=== PATIENT | male | born 1955 | race Caucasian/White ===

== ENCOUNTER → 2024-06-28 | Outpatient (CLI) | payer MEDICARE, OTHER, SELFPAY ==
[2024-06-28 18:16] LABS: Alanine Aminotransferase 33 U/L (10-49); Albumin/Globulin Ratio 1.9 (1.2-2.2); Alkaline Phosphatase 82 U/L (46-116); Anion Gap 7 (7-16); Aspartate Amino Transferase 25 U/L (0-34); BUN/Creatinine Ratio 15 Ratio (12-20); Bilirubin,Total 0.5 mg/dL (0.3-1.2); Blood Urea Nitrogen 29 mg/dL (9-23); Calcium 9.9 mg/dL (8.3-10.6); Calcium (Corrected) 9.9 mg/dL (8.5-10.1); Carbon Dioxide 25.6 mMol/L (20.0-31.0); Chloride 101 mMol/L (98-107); Creatinine (Component) 1.9 mg/dL (0.6-1.3); Globulin 2.6 gm/dL (2.3-3.5); Glucose 191 mg/dL (74-106); Osmolality,Calculated 279 (275-295); Potassium 4.9 mMol/L (3.4-5.1); Sodium 134 mMol/L (136-145); Total Protein 7.6 gm/dL (5.7-8.2); eGFR 38 See Note
== END | disposition home or self-care (01) ==
LOC: COPL 16:01
PROVIDERS: PCP Physician Assistant; Referring Provider Physician Assistant; Visit Provider Physician Assistant
DX: E78.5 Hyperlipidemia, unspecified (principal); D50.9 Iron deficiency anemia, unspecified; E11.65 Type 2 diabetes mellitus with hyperglycemia; E55.9 Vitamin D deficiency, unspecified
CPT/HCPCS: 36415; 80053

== ENCOUNTER → 2024-08-12 | Outpatient (CLI) | payer MEDICARE, OTHER, SELFPAY ==
[2024-08-12 14:14] LABS: Basophils % (Auto) 1 % (0-2.5); Eosinophils # (Auto) 0.1 Thou/mm3 (0.0-0.5); Eosinophils % (Auto) 2 % (0-10); Hematocrit 44.6 % (41.0-53.0); Hemoglobin 15.2 g/dL (13.5-16.0); Immature Granulocytes % (Auto) 0 % (0-0); Immature Granulocytes Auto 0.01 Thou/mm3 (0.00-0.00); Lymphocytes # (Auto) 2.7 Thou/mm3 (1.0-4.8); Lymphocytes % (Auto) 41 % (10-50); Mean Corpuscular HGB Conc 34.1 g/dl (31.0-37.0); Mean Corpuscular Hemoglobin 29.9 pg (25.0-35.0); Mean Corpuscular Volume 88 fL (80-100); Monocytes # (Auto) 0.4 Thou/mm3 (0.0-0.8); Monocytes % (Auto) 6 % (0-12); Neutrophils # (Auto) 3.4 Thou/mm3 (1.8-7.7); Neutrophils % (Auto) 50 % (37-80); Nucleated Red Blood Cell % 0 /100 WBC (0); Platelet Count 185 Thou/mm3 (140-440); RDW Standard Deviation 40.4 fL (35.1-43.9); Red Blood Count 5.09 Miln/mm3 (4.50-5.90); White Blood Count 6.7 Thou/mm3 (3.8-10.6)
[2024-08-12 14:23] LABS: Glucose Estimated Average 174 mg/dL (80-131); Hemoglobin A1C 7.7 % Hgb (4.8-6.0); Parathyroid Hormone Intact 69.2 pg/ml (18.5-88.0)
[2024-08-12 14:25] LABS: Anion Gap 11 (7-16); BUN/Creatinine Ratio 13 Ratio (12-20); Blood Urea Nitrogen 22 mg/dL (9-23); Carbon Dioxide 24.3 mMol/L (20.0-31.0); Chloride 101 mMol/L (98-107); Creatinine (Component) 1.7 mg/dL (0.6-1.3); Glucose 139 mg/dL (74-106); Osmolality,Calculated 277 (275-295); Phosphorous 3.2 mg/dL (2.4-5.1); Potassium 4.6 mMol/L (3.4-5.1); Sodium 136 mMol/L (136-145); eGFR 44 See Note
[2024-08-12 14:36] LABS: Vitamin D 25 Hydroxy Total 28.1 ng/mL (7.3-40.2)
== END | disposition home or self-care (01) ==
PROVIDERS: PCP Family Medicine; Referring Provider Internal Medicine; Visit Provider Internal Medicine
DX: E11.22 Type 2 diabetes mellitus with diabetic chronic kidney disease (principal); N18.30 Chronic kidney disease, stage 3 unspecified; E78.5 Hyperlipidemia, unspecified
CPT/HCPCS: 36415; 80069; 81001; 82043; 82306; 82570; 83036; 83970; 85025

== ENCOUNTER → 2024-08-17 | Outpatient (CLI) | payer MEDICARE, OTHER, SELFPAY ==
--- NOTE | 2024-08-17 15:00 | XR_ITS ---
Examination: Retroperitoneal ultrasound, complete Technique: Multiple high resolution grayscale images of the retroperitoneum obtained, including kidneys and bladder. Exam date and time:August 17, 2024 at 1523 hours INDICATIONS: Acute renal failure on laboratory examination August 12, 2024 FINDINGS: Right kidney 9.9 x 7.2 x 7.4 cm cortex 1.7 cm Left kidney 11.3 x 6.1 x 6.0 cm cortex 1.4 cm Mild right moderate left renal parenchymal scar formation Prostate volume 16 cc no prostate nodules Anterior to the prostate is solid mass 2.5 x 2.2 x 2.4 cm IMPRESSION: Mild right kidney Moderate left renal parenchymal scar formation Bilateral renal cortical thinning Solid mass anterior to the prostate 2.5 x 2.2 x 2.4 cm, recommend CT scan abdomen pelvis post intravenous contrast follow-up
[2024-08-17 15:50] LABS: Collection Type, Urine Clean Catch; Squamous Epithelial Cell,Urine 0 /hpf (0-5)
[2024-08-17 17:45] LABS: Bilirubin,Urine Negative (Negative); Blood,Urine Negative (Negative); Clarity,Urine Clear (Clear/Hazy); Color,Urine Lt-Yellow (Lt Yel-Yel); Glucose, Urine 3+ (Negative); Hyaline Casts,Urine < 1 /hpf (0-1); Ketones,Urine Negative (Negative); Leukocyte Esterase,Urine Negative (Negative); Nitrite,Urine Negative (Negative); PH,Urine 6.5 (5.0-7.0); Protein,Urine Trace (Neg - Trace); RBC,Urine 1 /hpf (0-3); Specific Gravity,Urine 1.015 (1.001-1.035); Urobilinogen,Urine Negative mg/dL (0.0-1.0); WBC,Urine < 1 /hpf (0-5)
[2024-08-17 18:12] LABS: Creatinine MALB Rnd Ur 73 mg/dL (30-125); Microalbumin Creat Ratio 119 mg/gCrea (<30); Microalbumin, Random Urine 87 mg/L (0-300)
== END | disposition home or self-care (01) ==
LOC: CDIM 14:49 → COPL 15:49
PROVIDERS: PCP Internal Medicine; Referring Provider Internal Medicine; Visit Provider Radiology Diagnostic Radiology
DX: N28.89 Other specified disorders of kidney and ureter (principal); N42.89 Other specified disorders of prostate; E11.22 Type 2 diabetes mellitus with diabetic chronic kidney disease; N18.30 Chronic kidney disease, stage 3 unspecified; E78.5 Hyperlipidemia, unspecified
CPT/HCPCS: 76770; 81001; 82043; 82570

== ENCOUNTER → 2024-08-23 | Outpatient (CLI) | payer MEDICARE, OTHER, SELFPAY ==
--- NOTE | 2024-08-23 12:00 | XR_ITS ---
Examination: CT abdomen with intravenous contrast CT pelvis with intravenous contrast 2-D coronal reconstructions 2-D sagittal reconstructions Date and time of exam:August 23, 2024 1239 hours Comparison February 13, 2021 INDICATIONS: Diagnosis specified disorders of the prostate, solid mass anterior to the prostate 2.5 cm Renal sonogram August 17, 2024. CTDI: vol (mGy) 23.9 DLP: (mGycm) 957 Technique: Multiple axial sections of the abdomen and pelvis have been obtained. 64 slice high-resolution scanner used. 3 mm axial sections have been obtained, post intravenous injection 60 cc [id number] 2-D sagittal, coronal reconstructions obtained. Low dose protocols were performed. One or more of the following dose reduction techniques were used; automated exposure control, adjustment of the mA and/or KV according to patient size, use of iterative reconstruction technique. Findings: No focal liver or splenic lesions Absent gallbladder No pancreatic or adrenal mass 2 mm upper pole left renal calculus No hydronephrosis or ureteral calculi Aorta normal size No pericecal inflammatory change No bowel obstruction Transverse prostate dimension 4.9 cm No mass anterior to the prostate is depicted Urinary bladder is contracted Prominent osteopenia Advanced disc narrowing L5-S1 IMPRESSION: 2 mm nonobstructing upper pole left renal calculus Prostatomegaly, transverse dimension 4.7 cm No mass anterior to the prostate is noted on this study Recommend follow-up transrectal prostate sonography
[2024-08-23 14:15] LABS: Glucose Estimated Average 180 mg/dL (80-131); Hemoglobin A1C 7.9 % Hgb (4.8-6.0)
[2024-08-23 14:17] LABS: Alanine Aminotransferase 36 U/L (10-49); Albumin, Serum 5.2 gm/dL (3.4-4.8); Albumin/Globulin Ratio 1.9 (1.2-2.2); Alkaline Phosphatase 81 U/L (46-116); Anion Gap 10 (7-16); Aspartate Amino Transferase 23 U/L (0-34); BUN/Creatinine Ratio 13 Ratio (12-20); Bilirubin,Total 0.4 mg/dL (0.3-1.2); Blood Urea Nitrogen 25 mg/dL (9-23); Calcium 10.1 mg/dL (8.3-10.6); Calcium (Corrected) 10.1 mg/dL (8.5-10.1); Carbon Dioxide 26.1 mMol/L (20.0-31.0); Chloride 101 mMol/L (98-107); Cholesterol 190 mg/dL (132-200); Globulin 2.8 gm/dL (2.3-3.5); Glucose 149 mg/dL (74-106); HDL Cholesterol 48 mg/dL (40-60); LDL Cholesterol,Calculated 99 mg/dL (0-130); Osmolality,Calculated 281 (275-295); Potassium 5.1 mMol/L (3.4-5.1); Sodium 137 mMol/L (136-145); Triglycerides 216 mg/dL (30-150); eGFR 36 See Note
== END | disposition home or self-care (01) ==
LOC: CCTX 11:49 → COPL 13:08
PROVIDERS: Internal Medicine; PCP Physician Assistant; Referring Provider Physician Assistant; Visit Provider Radiology Diagnostic Radiology
DX: N20.0 Calculus of kidney (principal); N40.0 Benign prostatic hyperplasia without lower urinary tract symptoms; E11.65 Type 2 diabetes mellitus with hyperglycemia; E78.5 Hyperlipidemia, unspecified
CPT/HCPCS: 36415; 74177; 80053; 80061; 83036; A4649; Q9967

== ENCOUNTER → 2024-09-15 | Outpatient (CLI) | payer MEDICARE, OTHER, SELFPAY ==
--- NOTE | 2024-09-15 09:15 | XR_ITS ---
Examination: Transrectal prostate sonography TECHNIQUE: Grayscale transrectal sonographic images prostate Exam date and time: June 15, 2025 0953 hours INDICATIONS: Prostatomegaly on CT pelvis August 23, 2024 FINDINGS: Prostate 3.8 x 3.3 x 5.1 cm volume 34 cc 18 x 18 mm nodule in the mid anterior aspect of the prostate IMPRESSION: Positive for prostate nodule as above
== END | disposition home or self-care (01) ==
LOC: CDIM 09:06
PROVIDERS: PCP Physician Assistant; Referring Provider Internal Medicine; Visit Provider Internal Medicine
DX: N40.0 Benign prostatic hyperplasia without lower urinary tract symptoms (principal)
CPT/HCPCS: 76872

== ENCOUNTER → 2024-09-30 | Outpatient (BNVA) | payer MEDICARE, OTHER, SELFPAY | END | disposition home or self-care (01) | PROVIDERS: PCP Internal Medicine; Referring Provider Internal Medicine; Visit Provider Urology | DX: N40.1 Benign prostatic hyperplasia with lower urinary tract symptoms (principal); N13.8 Other obstructive and reflux uropathy; N40.2 Nodular prostate without lower urinary tract symptoms; N20.0 Calculus of kidney; I12.9 Hypertensive chronic kidney disease with stage 1 through stage 4 chronic kidney disease, or unspecified chronic kidney disease; E11.22 Type 2 diabetes mellitus with diabetic chronic kidney disease; N18.32 Chronic kidney disease, stage 3b; M13.80 Other specified arthritis, unspecified site; E11.42 Type 2 diabetes mellitus with diabetic polyneuropathy; E78.5 Hyperlipidemia, unspecified; E66.9 Obesity, unspecified; Z68.27 Body mass index [BMI] 27.0-27.9, adult | CPT/HCPCS: 81003; 99212; G0463 ==

== ENCOUNTER → 2024-10-07 | Outpatient (CLI) | payer MEDICARE, OTHER, SELFPAY ==
[2024-10-07 10:39] LABS: Basophils % (Auto) 1 % (0-2.5); Eosinophils # (Auto) 0.2 Thou/mm3 (0.0-0.5); Eosinophils % (Auto) 3 % (0-10); Hematocrit 47.4 % (41.0-53.0); Immature Granulocytes % (Auto) 0 % (0-0); Immature Granulocytes Auto 0.01 Thou/mm3 (0.00-0.00); Lymphocytes # (Auto) 2.6 Thou/mm3 (1.0-4.8); Lymphocytes % (Auto) 40 % (10-50); Mean Corpuscular HGB Conc 33.8 g/dl (31.0-37.0); Mean Corpuscular Volume 89 fL (80-100); Monocytes # (Auto) 0.4 Thou/mm3 (0.0-0.8); Monocytes % (Auto) 6 % (0-12); Neutrophils # (Auto) 3.2 Thou/mm3 (1.8-7.7); Neutrophils % (Auto) 51 % (37-80); Nucleated Red Blood Cell % 0 /100 WBC (0); Platelet Count 180 Thou/mm3 (140-440); RDW Standard Deviation 43.7 fL (35.1-43.9); Red Blood Count 5.33 Miln/mm3 (4.50-5.90); White Blood Count 6.4 Thou/mm3 (3.8-10.6)
[2024-10-07 10:50] LABS: Albumin, Serum 4.8 gm/dL (3.4-4.8); Anion Gap 9 (7-16); BUN/Creatinine Ratio 13 Ratio (12-20); Blood Urea Nitrogen 24 mg/dL (9-23); Calcium 9.7 mg/dL (8.3-10.6); Calcium (Corrected) 9.7 mg/dL (8.5-10.1); Carbon Dioxide 25.8 mMol/L (20.0-31.0); Chloride 103 mMol/L (98-107); Creatinine (Component) 1.9 mg/dL (0.6-1.3); Glucose 180 mg/dL (74-106); Osmolality,Calculated 284 (275-295); Phosphorous 3.5 mg/dL (2.4-5.1); Potassium 5.4 mMol/L (3.4-5.1); Sodium 138 mMol/L (136-145); eGFR 38 See Note
[2024-10-07 16:19] LABS: Collection Type, Urine Clean Catch; Squamous Epithelial Cell,Urine 0 /hpf (0-5)
[2024-10-07 16:50] LABS: Bilirubin,Urine Negative (Negative); Blood,Urine Negative (Negative); Clarity,Urine Clear (Clear/Hazy); Color,Urine Lt-Yellow (Lt Yel-Yel); Glucose, Urine 2+ (Negative); Ketones,Urine Negative (Negative); Leukocyte Esterase,Urine Negative (Negative); Nitrite,Urine Negative (Negative); PH,Urine 7.5 (5.0-7.0); Protein,Urine 1+ (Neg - Trace); RBC,Urine 5 /hpf (0-3); Urobilinogen,Urine Negative mg/dL (0.0-1.0); WBC,Urine 1 /hpf (0-5)
== END | disposition home or self-care (01) ==
LOC: COPL 09:45
PROVIDERS: PCP Family Medicine; Referring Provider Family Medicine; Visit Provider Internal Medicine
DX: N17.9 Acute kidney failure, unspecified (principal); I10 Essential (primary) hypertension
CPT/HCPCS: 36415; 80069; 81001; 85025

== ENCOUNTER 2024-10-28 11:35 | Inpatient (IN) | payer MEDICARE, OTHER, SELFPAY ==
[2024-10-28] VITALS (11 sets, daily range): BP systolic 126–165; BP diastolic 87–116; PULSE 93–106; RESP 12–99; TEMP 36.4–36.9; O2SAT 97–100; BMI 28.2
--- NOTE | 2024-10-28 11:58 | EKG_ITS ---
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
--- NOTE | 2024-10-28 12:18 | XR_ITS ---
Examination: PA lateral chest 2 views TECHNIQUE: Upright PA lateral chest 2 views Exam date and time: October 28, 2024 1246 hours Comparison January 17, 2024 INDICATIONS: Acute chest pain today. FINDINGS: Pneumonia left base and lingular segment left upper lobe 15 mm nodule in the right upper lobe Mild prominence of ventricle IMPRESSION: Pneumonia left base and lingular segment left upper lobe 15 mm pulmonary nodule right upper lobe, not visualized on chest film July 15, 2022 Differential would include lung carcinoma, recommend CT chest without intravenous contrast follow-up
--- NOTE | 2024-10-28 12:18 | PD.EDRME ---
Rapid Medical Screening Exam RME Arrival date/time: 10/28/24 11:35 68-year-old male presents to the emergency department today with complaints of chest pain back pain and neck pain Chief Complaint: Chest Pain Vital signs: Vital Signs Temperature 97.6 F 10/28/24 12:05 Pulse Rate 106 H 10/28/24 12:05 Respiratory Rate 16 10/28/24 12:05 Blood Pressure 138/87 H 10/28/24 12:05 Pulse Oximetry (%) 97 10/28/24 12:05 Oxygen Delivery Method Room Air 10/28/24 12:05
[2024-10-28 13:00] LABS: Basophils % (Auto) 1 % (0-2.5); Eosinophils # (Auto) 0.1 Thou/mm3 (0.0-0.5); Eosinophils % (Auto) 2 % (0-10); Hematocrit 42.6 % (41.0-53.0); Hemoglobin 14.5 g/dL (13.5-16.0); Immature Granulocytes % (Auto) 0 % (0-0); Immature Granulocytes Auto 0.02 Thou/mm3 (0.00-0.00); Lymphocytes % (Auto) 26 % (10-50); Mean Corpuscular Hemoglobin 30.2 pg (25.0-35.0); Mean Corpuscular Volume 89 fL (80-100); Monocytes # (Auto) 0.6 Thou/mm3 (0.0-0.8); Monocytes % (Auto) 7 % (0-12); Neutrophils # (Auto) 4.8 Thou/mm3 (1.8-7.7); Neutrophils % (Auto) 64 % (37-80); Nucleated Red Blood Cell % 0 /100 WBC (0); Platelet Count 157 Thou/mm3 (140-440); RDW Standard Deviation 43.7 fL (35.1-43.9); White Blood Count 7.5 Thou/mm3 (3.8-10.6)
[2024-10-28 13:15] LABS: Partial Thromboplastin Time 27.7 Seconds (22.0-36.0); Prothrombin Time 11.3 Seconds (9.0-12.2)
[2024-10-28 13:18] LABS: B-Type Natriuretic Peptide 163 pg/mL (0-100)
[2024-10-28 13:23] LABS: Alanine Aminotransferase 28 U/L (10-49); Albumin, Serum 4.6 gm/dL (3.4-4.8); Albumin/Globulin Ratio 1.6 (1.2-2.2); Alkaline Phosphatase 69 U/L (46-116); Anion Gap 11 (7-16); Aspartate Amino Transferase 42 U/L (0-34); BUN/Creatinine Ratio 9 Ratio (12-20); Bilirubin,Total 0.4 mg/dL (0.3-1.2); Blood Urea Nitrogen 17 mg/dL (9-23); Calcium 9.7 mg/dL (8.3-10.6); Calcium (Corrected) 9.7 mg/dL (8.5-10.1); Carbon Dioxide 23.9 mMol/L (20.0-31.0); Chloride 99 mMol/L (98-107); Creatinine (Component) 1.9 mg/dL (0.6-1.3); Estimated Creatinine Clearance 47.6 mL/min (>60); Globulin 2.8 gm/dL (2.3-3.5); Glucose 275 mg/dL (74-106); Magnesium 1.5 mg/dL (1.6-2.6); Osmolality,Calculated 279 (275-295); Potassium 4.3 mMol/L (3.4-5.1); Sodium 134 mMol/L (136-145); Total Protein 7.4 gm/dL (5.7-8.2); eGFR 38 See Note
[2024-10-28 13:25] LABS: Troponin I 2.337 ng/mL (0.0-0.045)
--- NOTE | 2024-10-28 14:03 | EKG_ITS ---
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[id number] Requested By: Jacob Brownlee Order Number: [id number] Reading MD: Jacob Brownlee Measurements Intervals [place] Rate: 95 P: 55 MA: 220 QRS: -37 QRSD: 84 T: 97 QT: 338 QTc: 425 Interpretive Statements SINUS RHYTHM WITH FIRST DEGREE AV BLOCK LEFT AXIS DEVIATION [QRS AXIS < -30] LOW QRS VOLTAGE IN PRECORDIAL LEADS [QRS DEFLECTION < 1.0 mV IN CHEST LEADS] PATTERN CONSISTENT WITH PULMONARY DISEASE SEPTAL MYOCARDIAL INFARCTION , OF INDETERMINATE AGE [40+ ms Q WAVE IN V1/V2] MODERATE T-WAVE ABNORMALITY, CONSIDER LATERAL ISCHEMIA [-0.1+ mV T-WAVE IN I/aVL/V5/V6] Compared to ECG 10/28/2024 12:09:19 First degree AV block now present Low QRS voltage now present Myocardial infarct finding now present Sinus tachycardia no longer present T-wave abnormality still present Possible ischemia still present /store/S0/[id number]/ecg/[id number].pdf
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
[2024-10-28] MEDS: NITROGLYCERIN 0.4 MG SUBL BTL #25 SL ×3 (14:14→20:50)
[2024-10-28] MEDS: Aspirin 325 MG TABLET PO (14:28)
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
[2024-10-28 15:27] LABS: Troponin I 3.475 ng/mL (0.0-0.045)
[2024-10-28] MEDS: HEPARIN SOD INJ 5000 UNIT/ML VIAL 4000 UNIT IV (16:00)
[2024-10-28] MEDS: Heparin/D5w 25K 250 ML Ivpb 25,000 UNIT/250 ML BAG 10 UNIT IV (16:03)
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
[2024-10-28 17:31] LABS: Troponin I 6.079 ng/mL (0.0-0.045)
--- NOTE | 2024-10-28 18:01 | PC.NURSE ---
WATER PURIFIER OPERATOR DR. POPE AT BEDSIDE, NOTIFIED OF ELEVATING TROPONIN, READ BACK LAB SERIES. MD AT BEDSIDE EVALUATING PT.
--- NOTE | 2024-10-28 19:00 | PC.NURSE ---
ASSSUMED CARE OF PATIENT, INTRODUCED MYSELF, PT IN NO ACUTE DISTRESS, DIAGNOSED WITH NSTEMI AND GOING TO [facility] IN AM WITH DR POPE, PT AWARE TO BE NPO AFTER MIDNIGHT AND HAS NO QUESTIONS REGARDING PLAN OF CARE. PT C/O CHEST PAIN 02/17, MORPHINE WILL BE GIVEN, PT ALERT AND ORIENTED. PT ON HEPARIN GTT WITH REPEAT PTT AT 2200, WILLL CONTINUE WITH PATIENTS PLAN OF CARE
[2024-10-28] MEDS: INSULIN LISPRO (AdmeLOG) 1 UNIT/0.01 ML UNIT SC (19:46)
[2024-10-28] MEDS: MORPHINE SULF INJ 10 MG/ML VIAL 2 MG IVP ×2 (19:46→22:43)
[2024-10-28] MEDS: ATORVASTATIN CALCIUM 20 MG TABLET 80 MG PO (19:47)
[2024-10-28] MEDS: MAGNESIUM OXIDE 400 MG TABLET PO (19:47)
--- NOTE | 2024-10-28 21:53 | PC.NURSE ---
RESIDENT NOTIFIED OF PATIENTS CONTINUED CHEST PAIN 02/17 LEFT SUBSTERNAL WITH MINIMAL RELIEF AFTET 3 S.L. NITROS AND 2MG MORPHINE IV. RESIDENT STATED HE WOULD PUT IN NEW ORDERS
--- NOTE | 2024-10-28 21:55 | EKG_ITS ---
[facility] Test Date: 2024-10-28 Pat Name: CHON LIZARRAGA Department: Room: [address] Gender: Male Dynamics Ax Consultant: : [id number] Requested By: Shauna Sun Order Number: [id number] Reading MD: Shauna Sun Measurements Intervals [place] Rate: 103 P: 47 VA: 196 QRS: -24 QRSD: 92 T: 115 QT: 332 QTc: 435 Interpretive Statements SINUS TACHYCARDIA BORDERLINE LEFT AXIS DEVIATION [QRS AXIS < -20] ST DEVIATION AND MODERATE T-WAVE ABNORMALITY, CONSIDER LATERAL ISCHEMIA [-0.1+ mV T-WAVE IN I/aVL/V5/V6] Compared to ECG 07/15/2022 06:02:34 Possible ischemia now present T-wave abnormality still present /store/S0/[id number].pdf
[2024-10-28] MEDS: MORPHINE SULF INJ 10 MG/ML VIAL IVP (22:07)
--- NOTE | 2024-10-28 22:15 | PC.NURSE ---
RESIDENTS DR CORREIA AND DR GARCÍA AT BEDSIDE ASSESSING PATIENT, SEE ORDERS
[2024-10-28 23:10] LABS: Partial Thromboplastin Time 40.5 Seconds (22.0-36.0)
--- NOTE | 2024-10-28 23:36 | PC.NURSE ---
SPOKE TO DR GARCÍA REGARDING HEPARIN GTT PROTOCOL HE STATS CONTNUE TO GIVEN THE 30ML/KG BOLUS NOT TO EXCEED 2000UNITS AND INCREASE BY THE RECOMMENDED 2 UNITS. MD ALSO MADE AWARE OF PATIENT CURRENT 6/10 CHEST PAIN THAT HASNT RESOLVED, WAITING FOR ORDERS
[2024-10-28] MEDS: HEPARIN SOD INJ 5000 UNIT/ML VIAL 2000 UNIT IV (23:45)
[2024-10-28] MEDS: NITROGLYCERIN OINT 2% 1 INCH PACKET TOP (23:45)
[2024-10-29] VITALS (25 sets, daily range): BP systolic 94–140; BP diastolic 53–98; PULSE 73–101; RESP 12–20; TEMP 36.2–36.9; O2SAT 94–99
[2024-10-29] MEDS: MORPHINE SULF INJ 10 MG/ML VIAL 2 MG IVP (02:11)
[2024-10-29 05:47] LABS: Basophils % (Auto) 1 % (0-2.5); Eosinophils # (Auto) 0.1 Thou/mm3 (0.0-0.5); Eosinophils % (Auto) 2 % (0-10); Hematocrit 38.3 % (41.0-53.0); Hemoglobin 13.1 g/dL (13.5-16.0); Immature Granulocytes % (Auto) 0 % (0-0); Immature Granulocytes Auto 0.02 Thou/mm3 (0.00-0.00); Lymphocytes # (Auto) 1.9 Thou/mm3 (1.0-4.8); Lymphocytes % (Auto) 27 % (10-50); Mean Corpuscular HGB Conc 34.2 g/dl (31.0-37.0); Mean Corpuscular Hemoglobin 30.3 pg (25.0-35.0); Mean Corpuscular Volume 89 fL (80-100); Monocytes # (Auto) 0.6 Thou/mm3 (0.0-0.8); Monocytes % (Auto) 9 % (0-12); Neutrophils # (Auto) 4.2 Thou/mm3 (1.8-7.7); Neutrophils % (Auto) 61 % (37-80); Nucleated Red Blood Cell % 0 /100 WBC (0); Platelet Count 126 Thou/mm3 (140-440); RDW Standard Deviation 43.3 fL (35.1-43.9); Red Blood Count 4.33 Miln/mm3 (4.50-5.90); White Blood Count 6.9 Thou/mm3 (3.8-10.6)
[2024-10-29 06:05] LABS: Glucose Estimated Average 177 mg/dL (80-131); Hemoglobin A1C 7.8 % Hgb (4.8-6.0)
[2024-10-29 06:36] LABS: Alanine Aminotransferase 32 U/L (10-49); Albumin, Serum 4.2 gm/dL (3.4-4.8); Albumin/Globulin Ratio 1.7 (1.2-2.2); Alkaline Phosphatase 61 U/L (46-116); Anion Gap 7 (7-16); Aspartate Amino Transferase 100 U/L (0-34); BUN/Creatinine Ratio 10 Ratio (12-20); Bilirubin,Total 0.4 mg/dL (0.3-1.2); Blood Urea Nitrogen 16 mg/dL (9-23); Calcium 9.3 mg/dL (8.3-10.6); Calcium (Corrected) 9.3 mg/dL (8.5-10.1); Carbon Dioxide 27.8 mMol/L (20.0-31.0); Cardiac Risk Estimate 3.1 RATIO (4.0-6.7); Chloride 100 mMol/L (98-107); Cholesterol 119 mg/dL (132-200); Creatinine (Component) 1.6 mg/dL (0.6-1.3); Estimated Creatinine Clearance 56.5 mL/min (>60); Globulin 2.5 gm/dL (2.3-3.5); Glucose 207 mg/dL (74-106); HDL Cholesterol 38 mg/dL (40-60); LDL Cholesterol,Calculated 50 mg/dL (0-130); Magnesium 1.6 mg/dL (1.6-2.6); Osmolality,Calculated 277 (275-295); Phosphorous 3.1 mg/dL (2.4-5.1); Potassium 4.1 mMol/L (3.4-5.1); Sodium 135 mMol/L (136-145); Thyroid Stimulating Hormone 2.52 uIU/mL (0.55-4.78); Total Protein 6.7 gm/dL (5.7-8.2); Triglycerides 154 mg/dL (30-150); eGFR 47 See Note
[2024-10-29 06:39] LABS: Partial Thromboplastin Time 52.8 Seconds (22.0-36.0)
[2024-10-29 06:40] LABS: Troponin I 15.949 ng/mL (0.0-0.045)
--- NOTE | 2024-10-29 06:47 | PC.NURSE ---
REPORT GIVEN TO ROLL ON WORKER JOSUE BOLIVAR
[2024-10-29 07:20] LABS: INR 1.1 (0.9-1.3); Prothrombin Time 11.6 Seconds (9.0-12.2)
[2024-10-29] MEDS: SODIUM CHLORIDE 0.9% 500 ML 500 ML 100 ML IV (10:15)
[2024-10-29] MEDS: SENNA TABLET 1 TAB PO (11:41)
[2024-10-29] MEDS: DOCUSATE SOD 100 MG CAPSULE PO (11:41)
[2024-10-29] MEDS: ASPIRIN EC 81 MG TABEC PO (11:42)
[2024-10-29 11:49] LABS: Partial Thromboplastin Time 44.7 Seconds (22.0-36.0)
[2024-10-29] MEDS: HEPARIN SOD INJ 1000 UNIT/ML VIAL 10 ML 2000 UNIT IV (12:41)
[2024-10-29] MEDS: Heparin/D5w 25K 250 ML Ivpb 25,000 UNIT/250 ML BAG 11.975 UNIT IV (12:45)
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
--- NOTE | 2024-10-29 15:00 | PC.NURSE ---
1015 patient is awake, alert, breathing unlabored, s/p LHC by Dr. Early, TR band present to right wrist, no bleeding or hematoma noted, report received from Sabi SALAS, patient to recover and be admitted to telemetry department. Pt to start heparin bolus and insusion protocol once TR band removed. Aspirin to be given in laborer cheesemaking today. 1112 medical technical writer at bedside to draw blood for PTT 1142 colace, Senna and Aspirin have been given 1155 Tr band removed, no bleeding or hematoma noted, site covered with tegaderm and coban 1241 PTT 44.7, 2000 units of bolus given per protocol order, new IV has been started to left hand 1245 heparin drip started per protocol 12unit/kg/hr, stat ptt ordered for 1845 1245 patient awake, alert, breathing unlabored, report given to Abby SALAS after starting heparin infusion, waiting for inpatient tele bed assignment 1330 Report received from Abby SALAS 1402 patient ambulated to bathroom and voided 1429 hospitalist at bedside taking to patient and family about plan of care 1500 patient awake, alert, breathing unlabored, dressing to right wrist dry with no active bleeding or hematoma, report given to Alecia SALAS, patient transferred to tele room 275 with all belongings.
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
--- NOTE | 2024-10-29 15:21 | PC.CM ---
Addendum entered by Miki Whelan RN 10/29/24 16:02: 1535- Received call from Dr. Cast regarding status of patient transfer, informed that [facility] was in the process of reviewing patient at this time and had been provided with contact information for attending Dr. Hollingsworth and concrete finishing machine operator Dr. Early. [facility] did not have a bed at this time, he asked that we call back and ask let them know that transfer was urgent. TC RN called [facility] and made them aware of this request, spoke to LATRICE Jordan at [facility] who reported that their Cardiovascular care TRANSFER STATION ATTENDANT Amaury Cuellar had spoken directly to Dr. Early and had been informed that transfer was not emergent at this time and a transfer tomorrow would be acceptable. [facility] did request that we call them back if patient's condition changes or becomes unstable. Dr. Cast and attending Dr. Hollingsworth informed of this information. Original Note: 1435- Transfer order received from Dr. Aicha Early, patient needs transfer to [facility] for CABG. Packet created and imaging discs obtained. [facility] transfer center aware, spoke with Nikki at [facility] who will review packet and start the process. She stated they do not have bed capacity at this time, but will communicate with her team regarding our request.
--- NOTE | 2024-10-29 15:56 | ECHO_ITS ---
Transthoracic Echo Report Ht (in): 74 Wt (lb): 195 Exam Location: [facility] Status: Inpatient Delivery Man: DONNY Domínguez^^^^ Indications: Procedure Performed: BP: 126 / 83 HR: 92 Rhythm: Sinus Technical Quality: Fair MEASUREMENTS (Male / Female) Normal Values 2D ECHO LV Diastolic Diameter PLAX 3.8 cm 4.2 - 5.9 / 3.9 - 5.3 cm LV Systolic Diameter PLAX 3.3 cm IVS Diastolic Thickness 1.2 cm 0.6 - 1.0 / 0.6 - 0.9 cm LVPW Diastolic Thickness 1.0 cm 0.6 - 1.0 / 0.6 - 0.9 cm LV Relative Wall Thickness 0.6 LVOT Diameter 1.7 cm Aortic Root Diameter 3.2 cm LA Systolic Diameter LX 2.2 cm 3.0 - 4.0 / 2.7 - 3.8 cm LV Ejection Fraction MOD 4C 61.1 % LV Cardiac Index MOD 4C 2895.1 cm?/min?m? LV Ejection Fraction 4C AL 62.1 % LV Cardiac Index 4C AL 3043.2 cm?/min?m? LV Ejection Fraction MOD 2C 39.2 % LV Cardiac Index MOD 2C 922.3 cm?/min?m? LV Ejection Fraction 2C AL 42.5 % LV Cardiac Index 2C AL 1022.0 cm?/min?m? LA Volume Index 16.6 cm?/m? 16 - 28 cm?/m? Ascending Aorta Diameter 2.4 cm DOPPLER AV Peak Velocity 123.0 cm/s AV Peak Gradient 6.1 mmHg AV Mean Gradient 4.0 mmHg AV Velocity Time Integral 21.9 cm AI Peak Velocity 207.0 cm/s AI Peak Gradient 17.1 mmHg AI Pressure Half Time 365.0 ms LVOT Peak Velocity 62.8 cm/s LVOT Peak Gradient 1.6 mmHg LVOT Velocity Time Integral 12.1 cm LVOT Cardiac Index 1172.8 cm?/min?m? AV Area Cont Eq vti 1.3 cm? AV Area Cont Eq pk 1.2 cm? MV Area PHT 4.2 cm? MR Peak Velocity 358.0 cm/s MR Peak Gradient 51.3 mmHg Mitral E Point Velocity 65.2 cm/s Mitral A Point Velocity 64.2 cm/s Mitral E to A Ratio 1.0 LV E' Lateral Velocity 7.3 cm/s Mitral E to LV E' Lateral Ratio 8.9 LV E' Septal Velocity 5.6 cm/s Mitral E to LV E' Septal Ratio 11.7 PV Peak Velocity 129.0 cm/s PV Peak Gradient 6.7 mmHg RVOT Peak Velocity 50.2 cm/s FINDINGS Left Ventricle The left ventricular cavity size is normal. Regional wall motion abnormalities are present. Anteroseptal. Lateral. Apical. Hypokinetic. . The left ventricular ejection fraction is mildly decreased, estimated at 40-45%. Right Ventricle The right ventricle is normal in size and systolic function. The estimated right ventricular systolic pressure, 20 mmHg. Left Atrium The left atrium is normal by two-dimensional, color flow and Doppler imaging with no structural abnormalities, no thrombus formation present. Right Atrium The right atrium is normal by two-dimensional imaging, color flow and Doppler imaging with no structural abnormalities, no thrombus formation present. Atrial Septum The interatrial septum appears normal with no evidence of a shunt. Aorta The aorta is normal by two-dimensional, color flow and Doppler interrogation. Mitral Valve Mild mitral regurgitation. Mild mitral annular calcification. Aortic Valve Trace to mild aortic valve regurgitation. Tricuspid Valve There is mild tricuspid valve regurgitation. Pulmonic Valve Trivial pulmonic valve regurgitation. Vessels The pulmonary artery appears normal. The inferior vena cava pulmonary and hepatic veins appear normal. Pericardium The pericardium is normal by two-dimensional imaging. There is no significant pericardial effusion. CONCLUSIONS indication: near syncope ischemic cardiomyopathy anterior sepatal apical hypokinesis Moderate LV dysfuction lVEF 40-45%t. RV appears normal with RVSP 20 mmHg. Trace mitral and trace tricuspid regurgitation Hannah Roberts (Electronically Signed) Final Date: 29 October 2024 14:01
[2024-10-29] MEDS: INSULIN LISPRO (AdmeLOG) 1 UNIT/0.01 ML UNIT SC (20:13)
[2024-10-29] MEDS: ATORVASTATIN CALCIUM 20 MG TABLET 80 MG PO (20:14)
[2024-10-30] VITALS: BP 106/79; BP 117/84; BP 120/93; BP 123/95; PULSE 73; PULSE 86; PULSE 91; PULSE 93; RESP 17; RESP 18; RESP 99; TEMP 36.2; TEMP 36.3; TEMP 36.7; O2SAT 95; O2SAT 96; O2SAT 98
[2024-10-30 00:03] VITALS: BP 120/82; PULSE 91
[2024-10-30] MEDS: NITROGLYCERIN 0.4 MG SUBL BTL #25 SL (00:03)
--- NOTE | 2024-10-30 00:03 | EKG_ITS ---
[facility] Test Date: 2024-10-30 Pat Name: CHON LIZARRAGA [facility] Gender: Male Transmission Worker: GOSIA : [id number] Requested By: Joey Curran Order Number: [id number] Reading MD: Joey Curran Measurements Intervals [place] Rate: 93 P: 7 IA: 176 QRS: -23 QRSD: 87 T: 112 QT: 367 QTc: 458 Interpretive Statements SINUS RHYTHM WITH SINUS ARRHYTHMIA SEPTAL MYOCARDIAL INFARCTION , OF INDETERMINATE AGE MODERATE T-WAVE ABNORMALITY, CONSIDER ANTEROLATERAL ISCHEMIA Compared to ECG 10/28/2024 19:18:22 First degree AV block no longer present Left-axis deviation no longer present Myocardial infarct finding still present T-wave abnormality still present Possible ischemia still present /store/S0/[id number]/ecg/[id number].pdf
--- NOTE | 2024-10-30 00:12 | PC.NURSE ---
Attempted to call [facility] to inform of status change for patient due to new onset chest pain. At this time, no answer. will attempt again
--- NOTE | 2024-10-30 00:23 | PC.NURSE ---
[facility] transfer called and notified of new onset chest pain. per [facility] transfer center, pt has been accepted and there is a room but has not been released yet due to [facility] not being on until tomorrow , they also would like to speak to MD Early first as well about patient prior to release bed. Hubert mendez and MD Curran made aware. MD Curran to contact MD Early to notify of events
--- NOTE | 2024-10-30 00:50 | EVENTNT_ITS ---
Documentation for date of: 10/30/24 Event Note Event Note: [employer] was called around 0005 this morning for acute chest pain, burning in nature. The patient's vitals were stable. He was given sublingual nitroglycerin 0.4 Mg x 1, after which patient reported that his pain started improving. EKG was done, that revealed no significant ST wave changes. Troponin, CMP, electrolytes, were ordered, and photography spotter Dr. Early was made aware of the situation. [facility] was contacted, and given the recent information. We will follow-up on labs. The patient's management plan was discussed with my attending physician MD Joey Murphy MD, PGY2
[2024-10-30 01:16] LABS: Alanine Aminotransferase 24 U/L (10-49); Albumin, Serum 4.9 gm/dL (3.4-4.8); Albumin/Globulin Ratio 1.6 (1.2-2.2); Alkaline Phosphatase 75 U/L (46-116); Anion Gap 10 (7-16); Aspartate Amino Transferase 86 U/L (0-34); BUN/Creatinine Ratio 11 Ratio (12-20); Bilirubin,Total 0.7 mg/dL (0.3-1.2); Blood Urea Nitrogen 18 mg/dL (9-23); Calcium 9.6 mg/dL (8.3-10.6); Calcium (Corrected) 9.6 mg/dL (8.5-10.1); Carbon Dioxide 27.5 mMol/L (20.0-31.0); Chloride 99 mMol/L (98-107); Creatinine (Component) 1.7 mg/dL (0.6-1.3); Estimated Creatinine Clearance 53.1 mL/min (>60); Globulin 3.1 gm/dL (2.3-3.5); Glucose 162 mg/dL (74-106); Magnesium 1.7 mg/dL (1.6-2.6); Osmolality,Calculated 277 (275-295); Phosphorous 2.8 mg/dL (2.4-5.1); Potassium 4.1 mMol/L (3.4-5.1); Sodium 136 mMol/L (136-145); eGFR 44 See Note
[2024-10-30] MEDS: MORPHINE SULF INJ 10 MG/ML VIAL 2 MG IVP ×2 (02:17→09:20)
[2024-10-30 03:52] LABS: Basophils % (Auto) 0 % (0-2.5); Eosinophils # (Auto) 0.1 Thou/mm3 (0.0-0.5); Eosinophils % (Auto) 2 % (0-10); Hematocrit 39.9 % (41.0-53.0); Hemoglobin 13.5 g/dL (13.5-16.0); Immature Granulocytes % (Auto) 0 % (0-0); Immature Granulocytes Auto 0.01 Thou/mm3 (0.00-0.00); Lymphocytes # (Auto) 1.2 Thou/mm3 (1.0-4.8); Lymphocytes % (Auto) 25 % (10-50); Mean Corpuscular HGB Conc 33.8 g/dl (31.0-37.0); Mean Corpuscular Hemoglobin 29.9 pg (25.0-35.0); Mean Corpuscular Volume 88 fL (80-100); Monocytes # (Auto) 0.4 Thou/mm3 (0.0-0.8); Monocytes % (Auto) 8 % (0-12); Neutrophils # (Auto) 3.2 Thou/mm3 (1.8-7.7); Neutrophils % (Auto) 65 % (37-80); Nucleated Red Blood Cell % 0 /100 WBC (0); Platelet Count 124 Thou/mm3 (140-440); RDW Standard Deviation 43.6 fL (35.1-43.9); Red Blood Count 4.52 Miln/mm3 (4.50-5.90); White Blood Count 4.9 Thou/mm3 (3.8-10.6)
[2024-10-30 04:00] VITALS: BP 132/86; PULSE 86; RESP 17; TEMP 36.7; O2SAT 98
[2024-10-30 04:18] LABS: Alanine Aminotransferase 33 U/L (10-49); Albumin, Serum 4.6 gm/dL (3.4-4.8); Albumin/Globulin Ratio 1.6 (1.2-2.2); Alkaline Phosphatase 66 U/L (46-116); Anion Gap 8 (7-16); Aspartate Amino Transferase 83 U/L (0-34); BUN/Creatinine Ratio 10 Ratio (12-20); Bilirubin,Total 0.6 mg/dL (0.3-1.2); Blood Urea Nitrogen 16 mg/dL (9-23); Calcium 9.4 mg/dL (8.3-10.6); Calcium (Corrected) 9.4 mg/dL (8.5-10.1); Carbon Dioxide 27.3 mMol/L (20.0-31.0); Chloride 100 mMol/L (98-107); Creatinine (Component) 1.6 mg/dL (0.6-1.3); Estimated Creatinine Clearance 56.4 mL/min (>60); Globulin 2.8 gm/dL (2.3-3.5); Glucose 164 mg/dL (74-106); Magnesium 1.7 mg/dL (1.6-2.6); Osmolality,Calculated 275 (275-295); Potassium 4.9 mMol/L (3.4-5.1); Sodium 135 mMol/L (136-145); Total Protein 7.4 gm/dL (5.7-8.2); eGFR 47 See Note
[2024-10-30 04:22] LABS: INR 1.1 (0.9-1.3); Partial Thromboplastin Time 52.6 Seconds (22.0-36.0); Prothrombin Time 11.7 Seconds (9.0-12.2)
[2024-10-30 06:00] VITALS: BMI 28.0
[2024-10-30 08:00] VITALS: BP 133/85; PULSE 79; RESP 14; TEMP 36.5; O2SAT 100
[2024-10-30] MEDS: ASPIRIN EC 81 MG TABEC PO (09:22)
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
== END 2024-10-30 09:30 | disposition short-term general hospital (02) | DRG 281 ==
LOC: SERX 14:48 → SERHOLD 16:18 → S2NX 10-29 15:07
PROVIDERS: Internal Medicine Cardiovascular Disease; Nurse Practitioner Primary Care; Student in an Organized Health Care Education/Training Program; Admitting Provider Student in an Organized Health Care Education/Training Program; Emergency Provider Emergency Medicine; PCP Physician Assistant; Visit Provider Student in an Organized Health Care Education/Training Program
DX: I21.4 Non-ST elevation (NSTEMI) myocardial infarction (principal); I13.0 Hypertensive heart and chronic kidney disease with heart failure and stage 1 through stage 4 chronic kidney disease, or unspecified chronic kidney disease; I50.20 Unspecified systolic (congestive) heart failure; E11.22 Type 2 diabetes mellitus with diabetic chronic kidney disease; E78.5 Hyperlipidemia, unspecified; N18.9 Chronic kidney disease, unspecified; G89.29 Other chronic pain; M54.2 Cervicalgia; M54.9 Dorsalgia, unspecified; R25.1 Tremor, unspecified; F41.9 Anxiety disorder, unspecified; I25.10 Atherosclerotic heart disease of native coronary artery without angina pectoris; N40.0 Benign prostatic hyperplasia without lower urinary tract symptoms; R91.1 Solitary pulmonary nodule; I25.5 Ischemic cardiomyopathy; Z79.4 Long term (current) use of insulin; Z79.82 Long term (current) use of aspirin; Z79.84 Long term (current) use of oral hypoglycemic drugs; Z79.899 Other long term (current) drug therapy; Z86.74 Personal history of sudden cardiac arrest
CPT/HCPCS: 36415; 71046; 80053; 80061; 83036; 83735; 83880; 84100; 84443; 84484; 85025; 85610; 85730; 87811; 93005; 93306; 96372; 96374; 96376; 99291; J0171; J0461; J1643; J1644; J1815; J2250; J2270; J2310; J2371; J3490; J7040; A9270; J2305

== ENCOUNTER 2025-02-02 13:32 | Emergency (ER) | payer MEDICARE, OTHER, SELFPAY ==
[2025-02-02 13:37] VITALS: PULSE 95; RESP 20; O2SAT 100; BMI 25.0
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
[2025-02-02 14:17] VITALS: BP 141/77; PULSE 90; RESP 14; TEMP 36.8; O2SAT 100
--- NOTE | 2025-02-02 14:23 | EKG_ITS ---
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
--- NOTE | 2025-02-02 15:10 | XR_ITS ---
Examination: CTA chest with intravenous contrast 2-D reconstructions 3-D reconstructions, vascular Date and time of exam: February 02, 2025 1649 hours INDICATIONS: History heart surgery, shortness of breath right chest pain today CTDI: vol (mGy) 16.6 DLP: (mGycm) 359 Technique: Multiple axial sections of the thorax have been obtained. 3 mm slice thickness, from below the hemidiaphragms to above the apices of the lungs. Mediastinal and lung density settings have been obtained. 2-D sagittal and coronal reconstructions. 3-D angiographic renderings, 3-D volume renderings, 3D post processing, vascular maximum intensity projections obtained. Contrast administered is 60 cc Isovue 300. Low dose protocols were performed. One or more of the following dose reduction techniques were used; automated exposure control, adjustment of the mA and/or KV according to patient size, use of iterative reconstruction technique. Findings: CABG No thoracic aortic aneurysmal dilatation or dissection Pulmonary artery segments are not enlarged No pulmonary artery filling defects Again noted 15 mm pulmonary nodule right upper lobe, stable compared with October 28, 2024 Significant pneumonia right base with small right pleural effusion Atelectasis left lower lobe Mild to moderate vascular congestion A heavy calcification left main and left anterior descending left circumflex and right coronary arteries The liver is lobular in contour with possible embolization material in the mid right liver Pancreas is not enlarged Kidneys partially visualized and hydronephrosis Gastrostomy tube Impression : Negative for pulmonary artery emboli Mild to moderate vascular congestion Prominent pneumonia right base with a small right pleural effusion Cirrhosis
[2025-02-02 15:28] VITALS: PULSE 88; RESP 20; O2SAT 100
[2025-02-02 15:28] LABS: Lactate (Lactic Acid) 1.1 mMol/L (0.4-2.0)
[2025-02-02 15:32] LABS: Basophils % (Auto) 1 % (0-2.5); Eosinophils # (Auto) 0.1 Thou/mm3 (0.0-0.5); Eosinophils % (Auto) 2 % (0-10); Hematocrit 26.1 % (41.0-53.0); Immature Granulocytes % (Auto) 0 % (0-0); Immature Granulocytes Auto 0.02 Thou/mm3 (0.00-0.00); Lymphocytes # (Auto) 1.6 Thou/mm3 (1.0-4.8); Lymphocytes % (Auto) 25 % (10-50); Mean Corpuscular HGB Conc 30.3 g/dl (31.0-37.0); Mean Corpuscular Hemoglobin 28.2 pg (25.0-35.0); Mean Corpuscular Volume 93 fL (80-100); Monocytes # (Auto) 0.4 Thou/mm3 (0.0-0.8); Monocytes % (Auto) 7 % (0-12); Neutrophils # (Auto) 4.3 Thou/mm3 (1.8-7.7); Neutrophils % (Auto) 66 % (37-80); Nucleated Red Blood Cell % 0 /100 WBC (0); Platelet Count 216 Thou/mm3 (140-440); RDW Standard Deviation 46.4 fL (35.1-43.9); White Blood Count 6.6 Thou/mm3 (3.8-10.6)
[2025-02-02 15:35] LABS: Hemoglobin 7.9 g/dL (13.5-16.0)
[2025-02-02 15:40] VITALS: PULSE 84; RESP 20; O2SAT 100
[2025-02-02 15:42] LABS: Base Excess 4 (-3-3); HCO3 28 mEq/L (20-26); Inspired O2, VO2 Liters 6 L/min; O2 Saturation 101 % (91-98); PCO2 40 mmHg (32.0-48.0); PO2 165 mmHg (83-108); pH, Arterial 7.46 (7.35-7.45)
[2025-02-02 15:43] LABS: Allen Test Performed/OK; Puncture Site Left Radial
[2025-02-02 15:47] LABS: B-Type Natriuretic Peptide 72 pg/mL (0-100)
[2025-02-02 15:49] LABS: INR 1.1 (0.9-1.3); Partial Thromboplastin Time 25.5 Seconds (22.0-36.0); Prothrombin Time 11.5 Seconds (9.0-12.2)
[2025-02-02] MEDS: cefTRIAXone/D5w 1gm IV premix 1 GM/50 ML BAG IV (16:02)
[2025-02-02 16:05] LABS: Alanine Aminotransferase 35 U/L (10-49); Albumin, Serum 4.1 gm/dL (3.4-4.8); Albumin/Globulin Ratio 1.3 (1.2-2.2); Alkaline Phosphatase 106 U/L (46-116); Anion Gap 5 (7-16); Aspartate Amino Transferase 32 U/L (0-34); BUN/Creatinine Ratio 8 Ratio (12-20); Bilirubin,Total < 0.2 mg/dL (0.3-1.2); Blood Urea Nitrogen 12 mg/dL (9-23); Calcium 9.2 mg/dL (8.3-10.6); Calcium (Corrected) 9.2 mg/dL (8.5-10.1); Carbon Dioxide 30.5 mMol/L (20.0-31.0); Chloride 102 mMol/L (98-107); Creatinine (Component) 1.6 mg/dL (0.6-1.3); Estimated Creatinine Clearance 51.4 mL/min (>60); Globulin 3.2 gm/dL (2.3-3.5); Glucose 143 mg/dL (74-106); LDH (Lactate Dehydrogenase) 140 U/L (120-246); Lipase 39 U/L (12-53); Magnesium 1.8 mg/dL (1.6-2.6); Osmolality,Calculated 275 (275-295); Phosphorous 2.7 mg/dL (2.4-5.1); Potassium 5.3 mMol/L (3.4-5.1); Procalcitonin 0.11 ng/ml (0.0-0.49); Sodium 137 mMol/L (136-145); Total Protein 7.3 gm/dL (5.7-8.2); Troponin I < 0.020 ng/mL (0.0-0.045); eGFR 47 See Note
[2025-02-02] MEDS: RINGERS LACTATED 1000 ML 1,000 ML 500 ML IV (16:32)
[2025-02-02 16:36] VITALS: BP 138/82; PULSE 83; RESP 19; O2SAT 100
[2025-02-02 18:48] VITALS: BP 160/84; PULSE 82; RESP 18; TEMP 36.6; O2SAT 100
[2025-02-02] MEDS: AZITHROMYCIN 250 MG TABLET 500 MG PO (19:38)
== END 2025-02-02 19:48 | disposition home or self-care (01) ==
PROVIDERS: Emergency Provider Emergency Medicine; PCP Physician Assistant
DX: J18.9 Pneumonia, unspecified organism (principal); N17.9 Acute kidney failure, unspecified; D64.9 Anemia, unspecified; E86.0 Dehydration; J90 Pleural effusion, not elsewhere classified; K74.60 Unspecified cirrhosis of liver; E78.00 Pure hypercholesterolemia, unspecified; I10 Essential (primary) hypertension; Z86.74 Personal history of sudden cardiac arrest
CPT/HCPCS: 36415; 36600; 71275; 80053; 81001; 82803; 83605; 83615; 83690; 83735; 83880; 84100; 84145; 84484; 85025; 85610; 85730; 87040; 87086; 93005; 96361; 96365; 99285; A4649; J0696; J7120; Q9967; A9270

== ENCOUNTER 2025-02-14 09:08 | Outpatient (RCR) | payer MEDICARE, OTHER, SELFPAY ==
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
== END 2025-03-10 23:59 | disposition home or self-care (01) ==
LOC: SCTC 09:08
PROVIDERS: PCP Physician Assistant; Referring Provider Physician Assistant; Visit Provider Internal Medicine Hematology & Oncology
DX: D72.89 Other specified disorders of white blood cells (principal); J90 Pleural effusion, not elsewhere classified; N42.89 Other specified disorders of prostate
CPT/HCPCS: 99213; G0463

== ENCOUNTER → 2025-02-25 | Outpatient (CLI) | payer MEDICARE, OTHER, SELFPAY ==
[2025-02-25 13:25] LABS: Basophils # (Auto) 0.0 Thou/mm3 (0.0-0.2); Basophils % (Auto) 1 % (0-2.5); Eosinophils # (Auto) 0.4 Thou/mm3 (0.0-0.5); Eosinophils % (Auto) 5 % (0-10); Hematocrit 35.9 % (41.0-53.0); Hemoglobin 11.5 g/dL (13.5-16.0); Immature Granulocytes Auto 0.01 Thou/mm3 (0.00-0.00); Lymphocytes # (Auto) 2.3 Thou/mm3 (1.0-4.8); Lymphocytes % (Auto) 30 % (10-50); Mean Corpuscular HGB Conc 32.0 g/dl (31.0-37.0); Mean Corpuscular Hemoglobin 27.7 pg (25.0-35.0); Mean Corpuscular Volume 87 fL (80-100); Monocytes # (Auto) 0.4 Thou/mm3 (0.0-0.8); Monocytes % (Auto) 5 % (0-12); Neutrophils # (Auto) 4.5 Thou/mm3 (1.8-7.7); Neutrophils % (Auto) 59 % (37-80); Nucleated Red Blood Cell # 0.00 Thou/mm3 (0.00-0.00); Nucleated Red Blood Cell % 0 /100 WBC (0); Platelet Count 244 Thou/mm3 (140-440); RDW Standard Deviation 43.1 fL (35.1-43.9); Red Blood Count 4.15 Miln/mm3 (4.50-5.90); White Blood Count 7.7 Thou/mm3 (3.8-10.6)
[2025-02-25 13:35] LABS: Alanine Aminotransferase 28 U/L (10-49); Albumin, Serum 4.5 gm/dL (3.4-4.8); Albumin/Globulin Ratio 1.2 (1.2-2.2); Alkaline Phosphatase 100 U/L (46-116); Anion Gap 10 (7-16); Aspartate Amino Transferase 31 U/L (0-34); BUN/Creatinine Ratio 10 Ratio (12-20); Bilirubin,Total < 0.2 mg/dL (0.3-1.2); Blood Urea Nitrogen 14 mg/dL (9-23); Calcium 9.5 mg/dL (8.3-10.6); Calcium (Corrected) 9.5 mg/dL (8.5-10.1); Carbon Dioxide 27.9 mMol/L (20.0-31.0); Chloride 99 mMol/L (98-107); Creatinine (Component) 1.4 mg/dL (0.6-1.3); Globulin 3.8 gm/dL (2.3-3.5); Glucose 208 mg/dL (74-106); LDH (Lactate Dehydrogenase) 145 U/L (120-246); Osmolality,Calculated 280 (275-295); Potassium 4.8 mMol/L (3.4-5.1); Sodium 137 mMol/L (136-145); Total Protein 8.3 gm/dL (5.7-8.2); Uric Acid 5.4 mg/dL (3.7-9.2); eGFR 55 See Note
[2025-02-25 13:45] LABS: Ferritin 52 ng/mL (10.5-307.3); Iron 34 mcg/dL (65-175); Percent Iron Saturation 11 % (20-55); Prostate Specific Antigen 0.75 ng/mL (0-4.00); Total Iron Binding Capacity 296 mcg/dL (250-425); Unsaturated Iron Binding 262 (225-295)
[2025-02-25 13:49] LABS: Folate > 24.00 ng/mL (>5.38); Vitamin B12 1985 pg/mL (211-911)
[2025-02-25 15:19] LABS: HIV (1&2) Antibody Rapid Non-Reactive
[2025-02-26 14:21] LABS: Cocci Serology, IgM Negative (Negative)
[2025-02-28 13:59] LABS: Cocci Serology, IgG Negative (Negative)
[2025-03-03 06:27] LABS: Thyroglobulin Antibodies* <1 IU/mL (< OR = 1)
== END | disposition home or self-care (01) ==
PROVIDERS: PCP Physician Assistant; Referring Provider Internal Medicine Hematology & Oncology; Visit Provider Internal Medicine Hematology & Oncology
DX: R59.0 Localized enlarged lymph nodes (principal)
CPT/HCPCS: 36415; 80053; 82607; 82728; 82746; 83540; 83550; 83615; 84153; 84550; 85025; 86331; 86635; 86703; 86800

== ENCOUNTER → 2025-03-07 | Outpatient (CLI) | payer MEDICARE, OTHER, SELFPAY ==
--- NOTE | 2025-03-07 14:30 | XR_ITS ---
Examination: CT soft tissue neck, with intravenous contrast. 2-D coronal reconstructions. 2-D sagittal reconstructions. Date and time of exam : March 07, 2025, 1500 hours INDICATIONS: Hoarseness of voice difficulty swallowing beginning October 2024. CTDI: vol (mGy):11.6 DLP: (mGycm):367 Technique: 1.25 mm axial sections of the neck of the obtained. Coronal and sagittal reconstructions have been obtained. Intravenous contrast administered 30 cc Isovue-300. Low dose protocols were performed. One or more of the following dose reduction techniques were used; automated exposure control, adjustment of the mA and/or KV according to patient size, use of iterative reconstruction technique. Findings: Symmetrical optic globes Maxillary antra are clear Symmetrical nasopharynx oropharynx Bilateral carotid triangle lymph nodes, the largest on the right side 11 mm Bilateral submental lymph nodes, the largest on the right side 8 mm Symmetrical submandibular glands The larynx appears normal Thyroid lobes are not enlarged, no thyroid nodules Normal epiglottis Moderate degenerative disc disease C5-C6 IMPRESSION: Nonspecific cervical lymphadenopathy, consider 3-6 month follow-up CT soft tissue neck post contrast
--- NOTE | 2025-03-07 14:30 | XR_ITS ---
Examination: CT chest with intravenous contrast CT abdomen with intravenous contrast CT pelvis with intravenous contrast CT chest without intravenous contrast CT abdomen without intravenous contrast CT pelvis without intravenous contrast 2-D coronal and sagittal reconstructions INDICATIONS: Generalized abdominal pain beginning October 2024, history heart surgery, cirrhosis, diagnosis enlarged lymph nodes Time of exam: March 07, 2025, [address] chest February 02, 2025 CTDI: vol (mGy) : 48.4 DLP: (mGycm): 397 Technique: Multiple axial images of the chest, abdomen and pelvis with intravenous contrast, 3.0 mm slice thickness. Images obtained post intravenous injection Isovue 370 60 cc. 2-D sagittal and coronal reconstructions. Low dose protocols were performed. One or more of the following dose reduction techniques were used; automated exposure control, adjustment of the mA and/or KV according to patient size, use of iterative reconstruction technique. Findings: No thoracic aortic aneurysm dilatation No pulmonary artery filling defects Heavy calcification left main left anterior descending left circumflex right coronary arteries Mild enlargement cardiac contour No paratracheal tracheobronchial or bronchopulmonary adenopathy 11 mm pulmonary nodule right upper lobe Mild vascular congestion Pneumonia right base with small right pleural effusion No visualized liver or splenic lesion Opacities in the liver which may represent embolization material Liver is irregular in contour Spleen is not enlarged No pancreatic or adrenal mass 2 mm upper pole left renal calculus, no hydronephrosis or ureteral calculi 6 mm right lateral periaortic lymph node No bowel obstruction No common iliac and external iliac internal iliac or common femoral significant lymphadenopathy Scar formation in the right groin Normal seminal vesicles No prostatomegaly No bladder mass or bladder calculi There is prominent osteopenia IMPRESSION: 11 mm pulmonary nodule right upper lobe, recommend continued 3-6 month follow-up CT chest without contrast Mild vascular congestion Pneumonia right base Primary hepatocellular disease 2 mm upper pole left renal calculus 6 mm right lateral periaortic lymph node No pelvic lymphadenopathy
== END | disposition home or self-care (01) ==
PROVIDERS: PCP Physician Assistant; Referring Provider Internal Medicine Hematology & Oncology; Visit Provider Specialist
DX: R91.1 Solitary pulmonary nodule (principal); J18.9 Pneumonia, unspecified organism; K76.89 Other specified diseases of liver; N20.0 Calculus of kidney; R59.0 Localized enlarged lymph nodes
CPT/HCPCS: 70491; 71270; 74178; A4649; Q9967

== ENCOUNTER → 2025-03-11 | Outpatient (CLI) | payer MEDICARE, OTHER, SELFPAY | END | disposition home or self-care (01) | LOC: SLDO 14:55 | PROVIDERS: PCP Physician Assistant; Referring Provider Physician Assistant; Visit Provider Physician Assistant | DX: K94.22 Gastrostomy infection (principal) | CPT/HCPCS: 87070; 87077; 87186; 87205 ==

== ENCOUNTER → 2025-03-22 | Outpatient (CLI) | payer MEDICARE, OTHER, SELFPAY ==
[2025-03-22 09:55] LABS: Quantiferon-TB* See Sep Rpt
== END | disposition home or self-care (01) ==
LOC: SCTO 09:41
PROVIDERS: PCP Physician Assistant; Referring Provider Internal Medicine Hematology & Oncology; Visit Provider Internal Medicine Hematology & Oncology
DX: R59.0 Localized enlarged lymph nodes (principal)
CPT/HCPCS: 86480

== ENCOUNTER 2025-03-23 11:50 | Outpatient (RCR) | payer MEDICARE, OTHER, SELFPAY ==
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
== END 2025-04-10 23:59 | disposition home or self-care (01) ==
LOC: SCTC 11:50
PROVIDERS: PCP Physician Assistant; Referring Provider Physician Assistant; Visit Provider Internal Medicine Hematology & Oncology
DX: R88.8 Abnormal findings in other body fluids and substances (principal); R91.1 Solitary pulmonary nodule; D64.9 Anemia, unspecified
CPT/HCPCS: 99212; G0463

== ENCOUNTER → 2025-03-28 | Outpatient (CLI) | payer MEDICARE, OTHER, SELFPAY ==
[2025-03-28 16:35] LABS: Amphetamine/Methamp Scrn,U Negative (Negative); Barbiturate Screen,Urine Positive (Negative); Benzodiazepines Screen,Urine Negative (Negative); Benzoylecgonine Screen, Ur Negative (Negative); Fentanyl Screen,Urine Positive (Negative); Opiate Screen,Urine Positive (Negative); THC Screen,Urine Negative (Negative)
== END | disposition home or self-care (01) ==
LOC: SLDO 15:07
PROVIDERS: PCP Physician Assistant; Referring Provider Physician Assistant; Visit Provider Physician Assistant
DX: Z79.891 Long term (current) use of opiate analgesic (principal)
CPT/HCPCS: 80307

== ENCOUNTER → 2025-04-15 | Outpatient (CLI) | payer MEDICARE, OTHER, SELFPAY ==
[2025-04-16 14:00] LABS: Cocci Serology, IgM Negative (Negative)
[2025-04-17 13:42] LABS: Cocci Serology, IgG Negative (Negative)
== END | disposition home or self-care (01) ==
LOC: SCTO 15:44
PROVIDERS: PCP Physician Assistant; Referring Provider Internal Medicine Hematology & Oncology; Visit Provider Internal Medicine Hematology & Oncology
DX: D72.820 Lymphocytosis (symptomatic) (principal)
CPT/HCPCS: 36415; 86331; 86635

== ENCOUNTER → 2025-05-17 | Outpatient (CLI) | payer MEDICARE, OTHER, SELFPAY ==
[2025-05-17 10:24] LABS: Basophils # (Auto) 0.0 Thou/mm3 (0.0-0.2); Basophils % (Auto) 1 % (0-2.5); Eosinophils # (Auto) 0.2 Thou/mm3 (0.0-0.5); Eosinophils % (Auto) 4 % (0-10); Hematocrit 38.5 % (41.0-53.0); Hemoglobin 12.6 g/dL (13.5-16.0); Immature Granulocytes Auto 0.01 Thou/mm3 (0.00-0.00); Immature Reticulocyte Fraction 19.9 % (2.3-13.4); Lymphocytes # (Auto) 2.6 Thou/mm3 (1.0-4.8); Lymphocytes % (Auto) 44 % (10-50); Mean Corpuscular HGB Conc 32.7 g/dl (31.0-37.0); Mean Corpuscular Hemoglobin 27.4 pg (25.0-35.0); Mean Corpuscular Volume 84 fL (80-100); Monocytes # (Auto) 0.5 Thou/mm3 (0.0-0.8); Monocytes % (Auto) 9 % (0-12); Neutrophils # (Auto) 2.4 Thou/mm3 (1.8-7.7); Neutrophils % (Auto) 42 % (37-80); Nucleated Red Blood Cell # 0.00 Thou/mm3 (0.00-0.00); Nucleated Red Blood Cell % 0 /100 WBC (0); Platelet Count 153 Thou/mm3 (140-440); RDW Standard Deviation 45.4 fL (35.1-43.9); Red Blood Count 4.60 Miln/mm3 (4.50-5.90); Reticulocyte % (Auto) 2.4 % (0.5-1.5); Reticulocyte Absolute Auto 109.0 Biln/L (25.0-75.0); Reticulocyte Hgb Content 32.7 pg (28.0-35.0); White Blood Count 5.7 Thou/mm3 (3.8-10.6)
[2025-05-17 10:38] LABS: Alanine Aminotransferase 31 U/L (10-49); Albumin, Serum 4.4 gm/dL (3.4-4.8); Albumin/Globulin Ratio 1.4 (1.2-2.2); Alkaline Phosphatase 98 U/L (46-116); Anion Gap 9 (7-16); Aspartate Amino Transferase 25 U/L (0-34); BUN/Creatinine Ratio 14 Ratio (12-20); Bilirubin,Total 0.2 mg/dL (0.3-1.2); Blood Urea Nitrogen 19 mg/dL (9-23); Calcium 9.4 mg/dL (8.3-10.6); Calcium (Corrected) 9.4 mg/dL (8.5-10.1); Carbon Dioxide 23.8 mMol/L (20.0-31.0); Cardiac Risk Estimate 2.6 RATIO (4.0-6.7); Chloride 105 mMol/L (98-107); Cholesterol 127 mg/dL (132-200); Creatinine (Component) 1.4 mg/dL (0.6-1.3); Globulin 3.2 gm/dL (2.3-3.5); Glucose 112 mg/dL (74-106); HDL Cholesterol 49 mg/dL (40-60); LDL Cholesterol,Calculated 56 mg/dL (0-130); Osmolality,Calculated 278 (275-295); Potassium 4.6 mMol/L (3.4-5.1); Sodium 138 mMol/L (136-145); Thyroid Stimulating Hormone 3.48 uIU/mL (0.55-4.78); Total Protein 7.6 gm/dL (5.7-8.2); Triglycerides 111 mg/dL (30-150); eGFR 55 See Note
[2025-05-17 10:41] LABS: Glucose Estimated Average 189 mg/dL (80-131); Hemoglobin A1C 8.2 % Hgb (4.8-6.0)
[2025-05-17 10:47] LABS: Ferritin 55 ng/mL (10.5-307.3); Iron 59 mcg/dL (65-175); Percent Iron Saturation 20 % (20-55); Prostate Specific Antigen 0.68 ng/mL (0-4.00); Total Iron Binding Capacity 284 mcg/dL (250-425); Unsaturated Iron Binding 225 (225-295)
[2025-05-17 10:52] LABS: Folate > 24.00 ng/mL (>5.38); Vitamin B12 703 pg/mL (211-911); Vitamin D 25 Hydroxy Total 40.5 ng/mL (7.3-40.2)
== END | disposition home or self-care (01) ==
LOC: COPL 09:33
PROVIDERS: PCP Physician Assistant; Referring Provider Physician Assistant; Visit Provider Specialist
DX: D64.9 Anemia, unspecified (principal); E78.9 Disorder of lipoprotein metabolism, unspecified; D50.9 Iron deficiency anemia, unspecified; E11.65 Type 2 diabetes mellitus with hyperglycemia; E55.9 Vitamin D deficiency, unspecified; E78.5 Hyperlipidemia, unspecified; Z12.5 Encounter for screening for malignant neoplasm of prostate
CPT/HCPCS: 36415; 80053; 80061; 81001; 82043; 82306; 82570; 82607; 82728; 82746; 83036; 83540; 83550; 84153; 84443; 85025; 85046

== ENCOUNTER → 2025-05-18 | Outpatient (CLI) | payer MEDICARE, OTHER, SELFPAY ==
[2025-05-18 16:42] LABS: Collection Type, Urine Clean Catch
[2025-05-18 17:46] LABS: Bilirubin,Urine Negative (Negative); Blood,Urine Negative (Negative); Clarity,Urine Clear (Clear/Hazy); Color,Urine Lt-Yellow (Lt Yel-Yel); Culture Indicated,Urine Not Indicated; Glucose, Urine 4+ (Negative); Ketones,Urine Negative (Negative); Leukocyte Esterase,Urine Negative (Negative); Nitrite,Urine Negative (Negative); PH,Urine 6.0 (5.0-7.0); Protein,Urine Negative (Neg - Trace); RBC,Urine 1 /hpf (0-3); Specific Gravity,Urine 1.017 (1.001-1.035); Squamous Epithelial Cell,Urine < 1 /hpf (0-5); Urobilinogen,Urine Negative mg/dL (0.0-1.0); WBC,Urine < 1 /hpf (0-5)
[2025-05-18 17:56] LABS: Creatinine MALB Rnd Ur 74 mg/dL (30-125); Microalbumin Creat Ratio 22 mg/gCrea (<30); Microalbumin, Random Urine 16 mg/L (0-300)
== END | disposition home or self-care (01) ==
LOC: SLDO 16:32
PROVIDERS: PCP Physician Assistant; Referring Provider Physician Assistant; Visit Provider Physician Assistant
DX: E11.65 Type 2 diabetes mellitus with hyperglycemia (principal); E55.9 Vitamin D deficiency, unspecified; E78.5 Hyperlipidemia, unspecified; D50.9 Iron deficiency anemia, unspecified; Z12.5 Encounter for screening for malignant neoplasm of prostate
CPT/HCPCS: 81001; 82043; 82570

== ENCOUNTER → 2025-06-16 | Outpatient (CLI) | payer MEDICARE, OTHER, SELFPAY ==
--- NOTE | 2025-06-16 10:30 | ECHO_ITS ---
Patient Info Name: Bassem Sams Age: 69 years : 1955 Gender: Male Ht: 188 cm Wt: 91 kg BSA: 2.18 m2 BP: 98 / 61 mmHg HR: 105 bpm Exam Date: 06/16/2025 10:56 AM Admit Date: 06/16/2025 Site: [facility] Room Number: Echo room Patient Status: O Exam Type: CA echo doppler complete Chain Maker: Iram Bailey Ordering Physician: Alfonso Jones Referring Physician: Alfonso Jones Study Info Indications Lymphocytosis (symptomatic) - Primary Location: SDIM Left Ventricular Outflow Tract Name Value Normal LVOT 2D LVOT Diameter 1.9 cm LVOT Doppler LVOT Peak Velocity 77 cm/s LVOT Mean Gradient 1 mmHg LVOT VTI 15 cm LVOT VTI/AV VTI Ratio 0.7 LVOT Stroke Volume 41 ml Pulmonic Valve Name Value Normal PV Doppler PV Peak Velocity 92 cm/s Mitral Valve Name Value Normal MV Doppler MV Decel [place] 556 cm/s2 MV PHT 36 ms MV Area (PHT) 6.2 cm2 4.0-5.0 MV Diastolic Function MV E Peak Velocity 69 cm/s MV A Peak Velocity 59 cm/s MV E/A 1.2 MV Annular TDI MV Lateral e' Velocity 6.0 cm/s MV E/e' (Lateral) 11.5 Tricuspid Valve Name Value Normal TV Regurgitation Doppler TR Peak Velocity 167 cm/s Estimated PAP/RSVP RA Pressure 3 mmHg <=5 PA Systolic Pressure 14 mmHg <36 RV Systolic Pressure 14 mmHg <36 Aortic Valve Name Value Normal AV 2D/MM AV Cusp Sep (MM) 1.1 cm AV Doppler AV Peak Velocity 126 cm/s AV Mean Gradient 3 mmHg AV VTI 20 cm AV Area (Cont Eq VTI) 2.1 cm2 >=3.0 AV Area (Cont Eq Clarence) 1.7 cm2 AV DI (Clarence) 0.61 AV Regurgitation 2D LVOT Area 2.8 cm2 Ventricles Name Value Normal LV Dimensions 2D/MM IVS Diastolic Thickness (2D) 0.9 cm 0.6-1.0 LVID Diastole (2D) 4.2 cm 4.2-5.8 LVIW Diastolic Thickness (2D) 1.1 cm 0.6-1.0 LVID Systole (2D) 2.6 cm 2.5-4.0 LVOT Diameter 1.9 cm LV Mass (2D Cubed) 137.25 g 88.00-224.00 LV Mass Index (2D Cubed) 63 g/m2 49-115 Relative Wall Thickness (2D) 0.52 <=0.42 IVS/LVIW Diastolic Thickness (2D) 0.82 0.00-1.50 LV Fractional Shortening/Ejection Fraction 2D/MM LV Fractional Shortening (2D) 38 % 25-43 LV EF (2D Teichholz) 69 % Atria Name Value Normal LA Dimensions LA Volume (4C A-L) 69 ml LA Volume (BP A-L) 72 ml Left Ventricle Left ventricular chamber dimension is normal. Left ventricular systolic function is normal with visually estimated ejection fraction of 60-65%. There is normal geometry noted in the left ventricle. Left ventricular segmental wall motion is normal. There is grade I diastolic dysfunction in the left ventricle. Right Ventricle Right ventricular chamber dimension is normal. Right ventricular systolic function is normal. Left Atrium Left atrial chamber dimension is normal. Right Atrium Right atrial chamber dimension is normal. Aortic Valve The aortic valve is trileaflet. There is mild aortic valve sclerosis. There is no aortic valve stenosis with a peak velocity of 126 cm/s, mean gradient of 3 mmHg, and aortic valve area of 2.1 cm2. There is no aortic valve regurgitation. Pulmonic Valve The pulmonic valve is normal. There is no pulmonic valve stenosis. There is no pulmonic regurgitation. Mitral Valve The mitral valve has thickened leaflets. There is no mitral valve stenosis. There is trace mitral valve regurgitation. Tricuspid Valve The tricuspid valve leaflets are normal. There is no tricuspid valve stenosis. There is trace tricuspid valve regurgitation. No pulmonary hypertension, estimated pulmonary arterial systolic pressure is 14 mmHg and systemic blood pressure of 98 mmHg in systole. Pericardium/Pleural The pericardium appears normal. There is no pericardial effusion. No pleural effusion visualized. Inferior Vena Cava Normal inferior vena cava with >50% collapse upon inspiration consistent with normal right atrial pressure, 3 mmHg. Aorta The aortic measurements are indexed to age and body surface area. The aortic root at the sinus of Valsalva is not well visualized. The prox ascending aorta is not well visualized. Summary 1. Left ventricle size is normal and systolic function is normal. Estimated ejection fraction is 50-55%. There is grade I diastolic dysfunction. 2. Right ventricle chamber size is normal and systolic function is normal. 3. There is trace mitral valve regurgitation. Mild MAC. 4. There is trace tricuspid valve regurgitation. 5. Normal IVC with estimated RA pressure 3 mmHg. Report Signatures Finalized by Chandu Early on 06/16/2025 05:35 PM
== END | disposition home or self-care (01) ==
PROVIDERS: PCP Physician Assistant; Referring Provider Internal Medicine Hematology & Oncology; Visit Provider Internal Medicine Hematology & Oncology
DX: I50.30 Unspecified diastolic (congestive) heart failure (principal); I08.1 Rheumatic disorders of both mitral and tricuspid valves
CPT/HCPCS: 93306

== ENCOUNTER → 2025-07-15 | Outpatient (CLI) | payer MEDICARE, OTHER, SELFPAY ==
--- NOTE | 2025-07-15 07:00 | XR_ITS ---
Examination: MRI brain without intravenous contrast. Date and time of exam: July 15, 2025, 0703 hours INDICATION: Right-sided headaches double vision loss of right eye function 2 weeks ago Technique: Multiple axial and sagittal images of the brain obtained. Siemens high-resolution 1.5 Lidia short bore scanners utilized. Sagittal sections, T1-weighted, TR 500, TE 14, are performed. Axial sections proton-density and T2-weighted have been obtained. Inversion recovery axial images, TR 9, 260, TE 111, TI 2500. Diffusion weighted images, axial sections, TR 4800, TE 128, B value 1000 Axial sections, ADC map, TR 4800, TE 128 Findings: Enlargement of the sella turcica is not present. The optic chiasm and infundibular are not remarkable. Prepontine and interpeduncular cisterns are not enlarged. There is no localized enlargement of the medulla or julian. Fourth ventricle and cerebellar tonsils appear normal in position. No subacute area of hemorrhage density is seen. Mass in the cerebellopontine angle region is not evident. Globes symmetrical. Orbital musculature including medial lateral rectus muscles do not exhibit abnormality. Diffusion-weighted images demonstrate no focus of restricted diffusion. Increased white matter signal moderate Mass effect upon the ventricular system is not identified. Impression: Negative for acute hemorrhage, mass effect or midline shift No acute infarct Moderate chronic microvascular white matter change Bilateral significant mastoiditis
== END | disposition home or self-care (01) ==
LOC: SMRI 06:44
PROVIDERS: PCP Physician Assistant; Referring Provider Physician Assistant; Visit Provider Physician Assistant
DX: R90.82 White matter disease, unspecified (principal); H70.93 Unspecified mastoiditis, bilateral
CPT/HCPCS: 70551